=== PATIENT | male | born 2000 | race Caucasian/White ===

== ENCOUNTER 2023-08-01 15:17 | Emergency (ER) | payer MEDICAID ==
[~2023-08-01] VITALS: Ht 188 cm; Wt 78.1 kg
[~2023-08-01 15:17] MED LIST: ALBU0.5N2
[2023-08-01 15:57] VITALS: PULSE 110; RESP 20; O2SAT 99
[2023-08-01] MEDS: SODIUM CHLORIDE 0.9% 1,000 ML IV ONE (15:57)
[2023-08-01 16:17] VITALS: BP 96/54; PULSE 84; RESP 16; TEMP 98; O2SAT 98
== END 2023-08-01 18:09 | disposition home or self-care (01) ==
LOC: EDBD 15:17 → ER 15:22
DX: T40.411A Poisoning by fentanyl or fentanyl analogs, accidental (unintentional), initial encounter (principal); R53.1 Weakness; F17.210 Nicotine dependence, cigarettes, uncomplicated; Z79.899 Other long term (current) drug therapy; Y92.89 Other specified places as the place of occurrence of the external cause
CPT/HCPCS: 36415; 80320; 93005; 96360; 99284; J7030